=== PATIENT | female | born 2000 | race Hispanic/Latino ===

== ENCOUNTER 2021-05-25 20:40 | Emergency (ER) | payer OTHER ==
[~2021-05-25] VITALS: Ht 170.2 cm; Wt 63.6 kg
[2021-05-25 21:56] VITALS: BP 144/79
== END 2021-05-25 22:21 | disposition home or self-care (01) ==
LOC: M ED 20:40
DX: F43.0 Acute stress reaction (principal); F31.9 Bipolar disorder, unspecified; F10.10 Alcohol abuse, uncomplicated; Z63.0 Problems in relationship with spouse or partner

== ENCOUNTER 2021-06-23 16:47 | Emergency (ER) | payer OTHER ==
[~2021-06-23] VITALS: Ht 170.2 cm; Wt 78.6 kg
[2021-06-23] MEDS ORDERED: XULA1DIS (16:58)
[2021-06-23] MEDS ORDERED: ONDANSETRON 4MG ORAL DISINTEGRATING TAB PO ONE (20:25)
[2021-06-23] MEDS ORDERED: KETOROLAC TROMETHAMINE 10 MG TAB PO ONE (20:25)
[2021-06-23 21:10] VITALS: BP 138/70
== END 2021-06-23 21:30 | disposition home or self-care (01) ==
LOC: M ED 16:47
DX: S06.0X0A Concussion without loss of consciousness, initial encounter (principal); W22.8XXA Striking against or struck by other objects, initial encounter; F41.9 Anxiety disorder, unspecified; F31.9 Bipolar disorder, unspecified; Y92.009 Unspecified place in unspecified non-institutional (private) residence as the place of occurrence of the external cause; Y93.9 Activity, unspecified; Y99.9 Unspecified external cause status

== ENCOUNTER 2021-09-03 04:38 | Emergency (ER) | payer OTHER ==
[~2021-09-03] VITALS: Ht 167.6 cm; Wt 77.3 kg
[~2021-09-03 04:38] MED LIST: XULA1DIS
[2021-09-03 04:39] VITALS: BP 164/88
== END 2021-09-03 05:47 | disposition left against medical advice (07) ==
LOC: M ED 04:38
DX: Z53.21 Procedure and treatment not carried out due to patient leaving prior to being seen by health care provider (principal)

== ENCOUNTER → 2021-10-10 | Outpatient (CLI) | payer OTHER | LOC: M WHC 11:44 | PROVIDERS: ATTEND Nurse Practitioner Women's Health | DX: O36.80X0 Pregnancy with inconclusive fetal viability, not applicable or unspecified (principal); Z3A.00 Weeks of gestation of pregnancy not specified ==

== ENCOUNTER 2021-10-14 09:32 | Day surgery (SDC) | payer OTHER ==
[~2021-10-14] VITALS: Ht 170.2 cm; Wt 74.4 kg
[2021-10-14 10:06] LABS: HEMATOCRIT 36.6 % (36.0-47.0); HEMOGLOBIN 12.3 g/dl (12.0-15.5); MEAN CORPUSCULAR HEMOGLOBIN 31.1 pg (27.0-33.0); MEAN CORPUSCULAR HGB CONC 33.6 g/dl (32.0-36.5); MEAN CORPUSCULAR VOLUME 92.7 fl (80.0-96.0); PLATELET COUNT, AUTOMATED 216 10^3/uL (150-450); RED BLOOD COUNT 3.95 10^6/uL (4.00-5.40); WHITE BLOOD COUNT 5.2 10^3/uL (4.0-10.0)
[2021-10-14] MEDS ORDERED: LR 1,000 ML IV SCH (10:20)
[2021-10-14] MEDS ORDERED: epi pen SQ (10:21)
[2021-10-14] MEDS ORDERED: metroNIDAZOLE 500 MG in IV 1 EA IV ONE (10:25)
[2021-10-14] MEDS ORDERED: MIDAZOLAM INJ 2MG/2ML VIAL (J2250 PER 1MG) As Ordered ONE (10:27)
[2021-10-14] MEDS ORDERED: fentaNYL 100 MCG/2 ML INJECTION As Ordered ONE (10:27)
[2021-10-14] MEDS ORDERED: ONDANSETRON 4MG 2ML VIAL As Ordered ONE (10:56)
[2021-10-14] MEDS ORDERED: propofoL 200 MG/20 ML VIAL As Ordered ONE ×2 (10:57→11:09)
[2021-10-14] MEDS ORDERED: dexameTHASONE 4 MG/ML 1ML VIAL (J1100 PER 1MG) As Ordered ONE (10:57)
[2021-10-14] MEDS ORDERED: KETOROLAC 60MG 2ML VIAL As Ordered ONE (11:07)
[2021-10-14] MEDS ORDERED: diphenhydrAMINE 50MG/ML VIAL (J1200) As Ordered ONE (11:34)
[2021-10-14] MEDS ORDERED: ACETAMINOPHEN 500 MG TAB PO PRN (12:10)
[2021-10-14] MEDS ORDERED: oxyCODONE 5MG TAB PO PRN (12:10)
[2021-10-14 12:43] VITALS: BP 133/61
== END 2021-10-14 12:45 | disposition home or self-care (01) ==
LOC: M SDC 09:32
PROVIDERS: ATTEND Obstetrics & Gynecology
DX: O02.1 Missed abortion (principal); F31.9 Bipolar disorder, unspecified; F41.9 Anxiety disorder, unspecified
CPT/HCPCS: 36415; 59820; 84702; 85027; 86850; 86900; 86901; 87635; 88305; J1100; J1200; J1885; J2250; J2405; J3010

== ENCOUNTER → 2024-04-27 | Outpatient (CLI) | payer OTHER ==
[~2024-04-27] MED LIST changes: +epi pen SQ
== END ==
LOC: M SOG 08:04
PROVIDERS: ATTEND Physician Assistant
DX: M25.531 Pain in right wrist (principal); Z53.9 Procedure and treatment not carried out, unspecified reason

== ENCOUNTER → 2024-05-05 | Outpatient (CLI) | payer OTHER | LOC: M SOG 07:55 | PROVIDERS: ATTEND Physician Assistant | DX: M25.531 Pain in right wrist (principal) ==